=== PATIENT | male | born 1950 | race Caucasian/White ===

== ENCOUNTER → 2023-06-29 09:35 | Outpatient (REF) | payer MEDICARE, OTHER, SELFPAY ==
[2023-06-29 11:46] LABS: PSA, Total - Diagnostic 0.21 ng/ml (0.0-4.0)
== END ==
LOC: REG 09:35
PROVIDERS: ATTENDING PHYSICIAN Specialist
DX: C61 Malignant neoplasm of prostate (principal)
CPT/HCPCS: 36415; 84153

== ENCOUNTER → 2024-01-17 13:08 | Outpatient (REF) | payer MEDICARE, OTHER, SELFPAY ==
[2024-01-17 16:28] LABS: INR 1.06; PT 13.6 Sec (11.4-14.6)
[2024-01-17 16:39] LABS: % Basophils 0.6 % (0-2); % Eosinophils 0.5 % (0-6); % Immature Granulocytes 0.4 % (0-0.5); % Lymphocytes 19.5 % (20.5-51.1); % Monocytes 8.9 % (1.7-9.3); % Neutrophils 70.1 % (42.2-75.2); Absolute Basophils 0.1 10^3/uL (0-0.2); Absolute Eosinophils 0.1 10^3/uL (0-0.7); Absolute Lymphocytes 2.1 10^3/uL (1.2-3.4); Absolute Neutrophils 7.5 10^3/uL (1.4-6.5); Hematocrit 45.9 % (39.0-52.0); Hemoglobin 15.9 g/dL (13.0-18.0); Mean Corp Hgb Conc. 34.6 g/dL (33.0-37.0); Mean Corpuscular Hgb 31.9 pg (27.0-31.0); Mean Platelet Volume 10.6 fL (7.4-10.4); Nucleated Red Blood Cells % 0 % (-); Platelet Count 320 10^3/uL (130-400); Red Blood Cell Count 4.99 10^6/uL (4.70-6.10); Red Cell Dist. Width 13.4 % (11.5-14.5); White Blood Cell Count 10.6 10^3/uL (4.8-10.8)
[2024-01-17 17:19] LABS: Blood Urea Nitrogen 18 mg/dl (9-20); Calcium 9.7 mg/dl (8.4-10.2); Carbon Dioxide 24 mmol/L (22-30); Chloride 103 mmol/L (98-107); Glucose 84 mg/dl (70-99); Potassium 4.3 mmol/L (3.5-5.1); Sodium 139 mmol/L (135-145); eGFR > 60.00
[2024-01-17 17:23] LABS: PSA, Total - Diagnostic 0.24 ng/ml (0.0-4.0)
== END ==
LOC: REG 13:08
PROVIDERS: ATTENDING PHYSICIAN Specialist; FAMILY PHYSICIAN Family Medicine
DX: C61 Malignant neoplasm of prostate (principal); R06.02 Shortness of breath; I10 Essential (primary) hypertension; I49.3 Ventricular premature depolarization; R00.8 Other abnormalities of heart beat
CPT/HCPCS: 80048; 84153; 85025; 85610

== ENCOUNTER → 2024-07-26 11:27 | Outpatient (REF) | payer MEDICARE, OTHER, SELFPAY ==
[2024-07-26 13:26] LABS: PSA, Total - Diagnostic 0.26 ng/ml (0.0-4.0)
== END ==
LOC: REG 11:27
PROVIDERS: ATTENDING PHYSICIAN Specialist; FAMILY PHYSICIAN Family Medicine
DX: C61 Malignant neoplasm of prostate (principal)
CPT/HCPCS: 36415; 84153

== ENCOUNTER → 2024-12-26 10:48 | Outpatient (REF) | payer MEDICARE, OTHER, SELFPAY ==
[2024-12-26 13:58] LABS: PSA, Total - Diagnostic 0.38 ng/ml (0.0-4.0)
== END ==
LOC: REG 10:48
PROVIDERS: ATTENDING PHYSICIAN Specialist; FAMILY PHYSICIAN Student in an Organized Health Care Education/Training Program
DX: C61 Malignant neoplasm of prostate (principal)
CPT/HCPCS: 36415; 84153